=== PATIENT | female | born 1950 | race Two or more races ===

== ENCOUNTER 2024-02-03 08:53 | Day surgery (SDC) | payer OTHER ==
[~2024-02-03] VITALS: Ht 160 cm; Wt 59.0 kg
[2024-02-03] VITALS (13 sets, daily range): BP systolic 95–151; BP diastolic 41–82; PULSE 46–109; RESP 12–26; TEMP 98.3; O2SAT 92–100
[~2024-02-03 08:53] MED LIST: ALEN10TA22 PO; AMIO200T33 PO; APIX5TAB PO; ATOR20TA50 PO; CARV6.2551 PO; FURO20TA3 PO; HEPARIN IN NS 1000Units/500mL 1,500 ML ONE; IODIXANOL 320MG/ML 100ML BTL IV ONE; MAGN241.4 PO; MEMA1TAB3 PO; MONT-8 PO; POTA-215 PO; SERT-206 PO; TRAZ-228 PO
[2024-02-03] MEDS ORDERED: MIDAZOLAM HCL 2MG/2ML 2ml VIAL (1mg/ml) IV ONE (10:00)
[2024-02-03] MEDS ORDERED: fentaNYL CITRATE 100 MCG/2 ML VL IV ONE (10:00)
[2024-02-03] MEDS ORDERED: LIDOCAINE VISCOUS 2% 15ML UD MT ONE (10:00)
[2024-02-03] MEDS ORDERED: ANGIOMAX 250 MG VIAL IV ONE (10:14)
[2024-02-03] MEDS ORDERED: SODIUM CHL 0.9% 0 ML ONE (10:14)
[2024-02-03] MEDS ORDERED: HEPARIN SODIUM (PORCINE) 5000 UNITS/ML 1ML VIAL ONE (10:23)
[2024-02-03] MEDS ORDERED: VERAPAMIL 2.5MG/ML INJ 2ML VIAL IV ONE (10:24)
[2024-02-03] MEDS ORDERED: LIDOCAINE 2%HCL (LOCAL ANESTH.) INJ 20ML MDV ONE (10:26)
[2024-02-03] MEDS ORDERED: IODIXANOL 320MG/ML 100ML BTL IV ONE (10:26)
== END 2024-02-03 13:01 | disposition home or self-care (01) ==
LOC: CATH 08:53
PROVIDERS: ATTEND Internal Medicine
DX: I08.1 Rheumatic disorders of both mitral and tricuspid valves (principal); I48.91 Unspecified atrial fibrillation; I25.10 Atherosclerotic heart disease of native coronary artery without angina pectoris; Z88.0 Allergy status to penicillin; Z88.5 Allergy status to narcotic agent
CPT/HCPCS: 93312; 93325; 93458; C1894; J1644; J2250; J3010; J7030; Q9967; 99152; 99153